=== PATIENT | male | born 1955 | race Caucasian/White ===

== ENCOUNTER 2020-12-03 07:58 | Day surgery (SDC) | payer MEDICARE ==
[2020-12-03] MEDS ORDERED: Bupivacaine 0.25% HCL 30 ML VIAL ONE (10:32)
[2020-12-03] MEDS ORDERED: EPINEPHrine 1 MG/ML AMP ONE ×2 (10:32→10:38)
[2020-12-03] MEDS ORDERED: Isosulfan Blue 50 MG/5 ML VIAL ONE (10:32)
[2020-12-03] MEDS ORDERED: Mineral Oil Sterile 10ML 10 ML UDCUP ONE (10:33)
[2020-12-03] MEDS ORDERED: Fentanyl 100 MCG/2 ML VIAL ONE ×2 (11:31→14:13)
[2020-12-03] MEDS ORDERED: PROPOFOL 200 MG/20 ML VIAL ONE (12:21)
[2020-12-03] MEDS ORDERED: Ondansetron PF 4 MG/2 ML Vial ONE ×2 (12:21→14:13)
[2020-12-03] MEDS ORDERED: Calcium Chloride 1 GM/10 ML Abboject SYRINGE ONE (12:21)
[2020-12-03] MEDS ORDERED: Dexamethasone 20 MG/5 ML VIAL ONE (12:21)
[2020-12-03] MEDS ORDERED: Lidocaine 1% PF 5 ML VIAL ONE (12:21)
[2020-12-03] MEDS ORDERED: PHENYLEPHRINE-NS 100 MCG/ML 10 ML SYRINGE ONE (12:21)
[2020-12-03] MEDS ORDERED: HYDROcodone/Acetaminophen 5/325 mg Tablet ONE (15:01)
[2020-12-03] MEDS ORDERED: Morphine 2 MG/ML VIAL ONE (15:34)
== END 2020-12-03 16:10 | disposition home or self-care (01) ==
LOC: SDC 07:58
PROVIDERS: ATTEND Plastic Surgery
PROC: 0JQD0ZZ Repair Right Upper Arm Subcutaneous Tissue and Fascia, Open Approach (ICD-10-PCS; principal; 2020-12-03)
PROC: 0HBBXZZ Excision of Right Upper Arm Skin, External Approach (ICD-10-PCS; 2020-12-03)
PROC: 07B50ZX Excision of Right Axillary Lymphatic, Open Approach, Diagnostic (ICD-10-PCS; 2020-12-03)
DX: C43.61 Malignant melanoma of right upper limb, including shoulder (principal); Z79.82 Long term (current) use of aspirin; Z79.899 Other long term (current) drug therapy; Z88.1 Allergy status to other antibiotic agents; Z88.8 Allergy status to other drugs, medicaments and biological substances
CPT/HCPCS: 11606; 12034; 38525; 38900; 78195; 88305; 88307; 88342; 93005; A9541; J2270; Q9968; 93010; J0171; J0690; J1100; J2405; J2704; J3010; S0020

== ENCOUNTER 2020-12-05 12:34 | Inpatient (IN) | payer MEDICARE ==
[~2020-12-05 12:34] MED LIST: Iopamidol-370 76% 500 ML 1 ML ONE
[2020-12-05] MEDS ORDERED: Fentanyl 100 MCG/2 ML VIAL ONE (12:38)
[2020-12-05] MEDS ORDERED: Acetaminophen 325 MG Suppository ONE (12:43)
[2020-12-05] MEDS ORDERED: Acetaminophen 650 MG Suppository ONE (12:43)
[2020-12-05] MEDS ORDERED: Cefepime 2 GM VIAL ONE (12:43)
[2020-12-05] MEDS ORDERED: Vancomycin 1 GM/200 ML BAG ONE (12:43)
[2020-12-05] MEDS ORDERED: Fentanyl BOLUS 250 ML IVPB PRN (13:00)
[2020-12-05] MEDS ORDERED: Fentanyl CADD 100 ML IV SCH (13:00)
[2020-12-05 13:09] LABS: Actual Bicarbonate (HCO3a) 22.8 mEq/L (22-28); Analyzer IN Cardio ER; Base Excess (BEa) -2.5 mEq/L (-2.0 to +3.0); CO2 Tension 41.8 mmHg (35.0-45.0); Calcium, Ionized (arterial) 1.09 mmol/L (1.12-1.30); Carboxyhemoglobin (COHb) 0.8 gm% (0.0-3.0); O2 Tension (PaO2), arterial 67.1 mmHg (> 80.0); Potassium - ABG Lab 5.24 mmol/L (3.70-5.30); pH, Arterial 7.35 (7.35-7.45)
[2020-12-05] MEDS ORDERED: Fentanyl 100 MCG/2 ML VIAL SLOW IVP SCH (13:15)
[2020-12-05 13:16] LABS: Hemoglobin 5.1 g/dL (14.0-18.0); Mean Corpuscular HGB CONC 27.2 g/dL (32.0-36.0); Mean Corpuscular Volume 69.7 fL (78.0-98.0); Mean Platelet Volume 8.2 fL (7.4-10.4); Platelet Count 1722 thou/uL (130-400); RBC Distribution Width 24.8 % (11.5-14.5); Red Blood Cell (RBC) Count 2.67 mill/uL (4.70-6.10); White Blood Cell (WBC) Count 30.3 thou/uL (4.8-10.8)
[2020-12-05 13:17] LABS: Puncture Site RRA
[2020-12-05 13:19] LABS: Bilirubin Negative (Negative); Blood, Urine Negative (Negative); Clarity Clear (Clear); Glucose, Urine (Dipstick) Normal (Negative); Ketone, Urine Negative (Negative); Leukocyte Negative Leu/uL (Negative); Nitrite Negative (Negative); Protein, Urine (Dipstick) Negative (Neg-Trace); Specific Gravity, Urine 1.021 (1.002-1.036); Urobilinogen Normal mg/dL (Less than 2)
[2020-12-05 13:22] LABS: ALT (SGPT) 14 U/L (8-55); AST (SGOT) 19 U/L (5-34); Albumin 3.5 g/dL (3.4-4.8); Alkaline Phosphatase 42 U/L (40-110); Anion Gap 17 mmol/L (10-20); BUN (Urea Nitrogen) 33 mg/dL (8.4-25.7); Bilirubin, Total 0.4 mg/dL (0.2-1.2); Calc. Creatinine Clearance 0 mL/min (70-130); Calcium 8.4 mg/dL (7.8-10.44); Carbon Dioxide 21 mmol/L (23-31); Chloride 106 mmol/L (98-107); Globulin 2.8 g/dL (2.4-3.5); Glucose 119 mg/dL (80-115); Potassium 5.8 mmol/L (3.5-5.1); Protein, Total 6.3 g/dL (5.8-8.1); Sodium 138 mmol/L (136-145)
[2020-12-05 13:31] LABS: INR-International Normal Ratio 1.3; PTT 32.5 sec (22.9-36.1); Prothrombin Time 15.9 sec (12.0-14.7)
[2020-12-05 13:37] LABS: Anisocytosis MODERATE=16-30 cells (100X) (0-5/hpf); Band 8 % (5-11); Elliptocytes SLIGHT = 2-5 cells (100X) (0-1/hpf); Eosinophils 5 % (0-10); Giant Platelets SLIGHT; Hypochromia MODERATE=16-30 cells (100X) (0-5/hpf); Large Platelets MODERATE; Lymphocytes 4 % (21-51); MDiff Complete? YES; Microcytosis MODERATE=15-30 cells (100X) (0-5/hpf); Monocytes 5 % (0-10); Neutrophil 77 % (42-75); Platelet Morphology Comment Appears Increased; Polychromasia MODERATE = 3-4 cells (100X) (0-2/hpf); Reactive Lymphocytes 1 % (0-10); Reflex for Review?? YES; Schistocytes SLIGHT = 2-5 cells (100X) (0-1/hpf); Target Cells SLIGHT = 2-5 cells (100X) (0-1/hpf); Tear Drops SLIGHT = 2-5 cells (100X) (0-1/hpf)
[2020-12-05 13:45] LABS: SARS-CoV-2 NAA Rapid Test Not Detected (NotDetected)
[2020-12-05 13:46] LABS: CKMB 6.3 ng/mL (0-6.6)
[2020-12-05 13:53] LABS: Fibrinogen 374 mg/dL (253-463)
[2020-12-05 13:54] LABS: INR-International Normal Ratio 1.3; PTT 34.5 sec (22.9-36.1); Prothrombin Time 16.2 sec (12.0-14.7)
[2020-12-05 13:55] LABS: D-Dimer Test 0.59 *mcg/mL (0.27-0.43)
[2020-12-05 14:13] LABS: FSP-Qualitative Normal (Normal); FSP-Semiquantitative LESS THAN 5 mcg/mL (Less than 5)
[2020-12-05 14:14] LABS: Platelet Count 1722 thou/uL (130-400)
[2020-12-05] MEDS ORDERED: Bisacodyl 10 MG SUPP PR PRN (14:15)
[2020-12-05] MEDS ORDERED: Ventilator Sedation Protocol 1 EACH FS SCH (14:15)
[2020-12-05] MEDS ORDERED: Acetaminophen 325 MG/10.15 ML UDCUP PO PRN (14:15)
[2020-12-05] MEDS ORDERED: Ondansetron PF 4 MG/2 ML Vial IVP PRN (14:15)
[2020-12-05] MEDS ORDERED: Acetaminophen 325 MG Suppository PR PRN (14:15)
[2020-12-05] MEDS ORDERED: Electrolyte Replacement Protocol 1 EACH IVPB SCH (14:15)
[2020-12-05] MEDS ORDERED: Meropenem 1 GM in Sodium Chloride 0.9% 100 ML IVPB SCH (14:15)
[2020-12-05] MEDS ORDERED: Sodium Bicarbonate 150 MEQ in Dextrose 5% in Water 1,000 ML IV SCH ×2 (14:15→15:22)
[2020-12-05] MEDS ORDERED: Norepinephrine 8 MG/0.9% NS 250 ML IVPB PRN (14:15)
[2020-12-05] MEDS ORDERED: Insulin Regular 300 UNITS/3 ML VIAL SC PRN ×2 (14:28)
[2020-12-05 14:57] LABS: Iron Binding Capacity, Total 333 mcg/dL (261-462); Magnesium 1.8 mg/dL (1.6-2.6); Phosphorus 4.6 mg/dL (2.3-4.7)
[2020-12-05 14:58] LABS: Iron Less than 8 ug/dL (65-175)
[2020-12-05] MEDS ORDERED: Morphine 2 MG/ML VIAL SLOW IVP PRN (15:15)
[2020-12-05] MEDS ORDERED: Propofol 1,000 MG/100 ML VIAL IV PRN (15:15)
[2020-12-05] MEDS ORDERED: fentaNYL Citrate/PF 2,000 MCG in Sodium Chloride 0.9% 60 ML IV SCH (15:15)
[2020-12-05] MEDS ORDERED: Propofol BOLUS 1,000 MG/100 ML VIAL IV PRN (15:15)
[2020-12-05] MEDS ORDERED: Aspirin 81 mg Enteric Coated Tablet PER TUBE SCH (15:30)
[2020-12-05] MEDS ORDERED: Norepinephrine 8 MG/0.9% NS 250 ML ONE (15:41)
[2020-12-05 15:51] LABS: Lactic Acid 1.2 mmol/L (0.5-2.2)
[2020-12-05 17:23] LABS: Reticulocyte Count 2.6 % (0.5-1.5)
[2020-12-05] MEDS ORDERED: MEROPENEM 1 GM/50 ML 1 GM in Premix Bag 1 BAG IVPB SCH (18:00)
[2020-12-05] MEDS ORDERED: Acetaminophen 650 MG Suppository PR PRN (18:35)
[2020-12-05] MEDS ORDERED: Calcium Carbonate 500 MG ChewTAB PO PRN (18:35)
[2020-12-05] MEDS ORDERED: Acetaminophen 325 MG TAB PO PRN (18:35)
[2020-12-05] MEDS ORDERED: Senokot S 8.6-50 MG TAB PO PRN (18:35)
[2020-12-05 18:39] LABS: Anion Gap 16 mmol/L (10-20); BUN (Urea Nitrogen) 34 mg/dL (8.4-25.7); Calc. Creatinine Clearance 0 mL/min (70-130); Calcium 7.9 mg/dL (7.8-10.44); Carbon Dioxide 19 mmol/L (23-31); Chloride 107 mmol/L (98-107); Glucose 164 mg/dL (80-115); Potassium 5.3 mmol/L (3.5-5.1); Sodium 137 mmol/L (136-145)
[2020-12-05] MEDS: Sodium Bicarbonate 150 MEQ in Dextrose 5% in Water 1,000 ML IV SCH (19:34)
[2020-12-05] MEDS: Hydroxyurea 500 MG CAP PO SCH (21:06)
[2020-12-05] MEDS: Iron, Sodium Ferric Gluconate 250 MG in Sodium Chloride 0.9% 250 ML 250 ML IVPB SCH (21:06)
[2020-12-05] MEDS: Lorazepam 2 MG/ML VIAL SLOW IVP PRN (21:54)
[2020-12-06] MEDS ORDERED: Fentanyl CADD 100 ML ONE ×2 (01:13→13:42)
[2020-12-06] MEDS: Fentanyl CADD 100 ML IV SCH ×2 (01:19→13:46)
[2020-12-06] MEDS: MEROPENEM 1 GM/50 ML 1 GM in Premix Bag 1 BAG IVPB SCH ×2 (01:44→13:38)
[2020-12-06] MEDS: Sodium Bicarbonate 150 MEQ in Dextrose 5% in Water 1,000 ML IV SCH (03:58)
[2020-12-06 04:40] LABS: ALT (SGPT) 17 U/L (8-55); AST (SGOT) 38 U/L (5-34); Albumin 3.1 g/dL (3.4-4.8); Alkaline Phosphatase 39 U/L (40-110); Anion Gap 13 mmol/L (10-20); BUN (Urea Nitrogen) 30 mg/dL (8.4-25.7); Bilirubin, Total 0.4 mg/dL (0.2-1.2); Calc. Creatinine Clearance 55 mL/min (70-130); Calcium 7.9 mg/dL (7.8-10.44); Carbon Dioxide 24 mmol/L (23-31); Chloride 104 mmol/L (98-107); Globulin 2.6 g/dL (2.4-3.5); Glucose 134 mg/dL (80-115); Potassium 4.3 mmol/L (3.5-5.1); Protein, Total 5.7 g/dL (5.8-8.1); Sodium 137 mmol/L (136-145)
[2020-12-06 05:13] LABS: Anisocytosis MODERATE=16-30 cells (100X) (0-5/hpf); Band 12 % (5-11); Elliptocytes SLIGHT = 2-5 cells (100X) (0-1/hpf); Hemoglobin 6.8 g/dL (14.0-18.0); Hypochromia SLIGHT = 6-15 cells (100X) (0-5/hpf); Large Platelets SLIGHT; Lymphocytes 1 % (21-51); MDiff Complete? YES; Mean Corpuscular HGB CONC 29.9 g/dL (32.0-36.0); Mean Corpuscular Hemoglobin 21.7 pg (27.0-31.0); Mean Corpuscular Volume 72.8 fL (78.0-98.0); Mean Platelet Volume 8.1 fL (7.4-10.4); Microcytosis SLIGHT = 6-15 cells (100X) (0-5/hpf); Monocytes 1 % (0-10); Neutrophil 85 % (42-75); Nucleated RBC 3 % (0); Platelet Count 1065 thou/uL (130-400); Platelet Morphology Comment Appears Increased; RBC Distribution Width 23.5 % (11.5-14.5); Red Blood Cell (RBC) Count 3.12 mill/uL (4.70-6.10); Tear Drops SLIGHT = 2-5 cells (100X) (0-1/hpf); White Blood Cell (WBC) Count 37.7 thou/uL (4.8-10.8)
[2020-12-06 05:21] LABS: CKMB 18.8 ng/mL (0-6.6)
[2020-12-06 07:07] LABS: Actual Bicarbonate (HCO3a) 25.9 mEq/L (22-28); Base Excess (BEa) 1.6 mEq/L (-2.0 to +3.0); CO2 Tension 39.4 mmHg (35.0-45.0); Calcium, Ionized (arterial) 1.03 mmol/L (1.12-1.30); Carboxyhemoglobin (COHb) 1.4 gm% (0.0-3.0); O2 Tension (PaO2), arterial 64.8 mmHg (> 80.0); Potassium - ABG Lab 4.07 mmol/L (3.70-5.30); pH, Arterial 7.44 (7.35-7.45)
[2020-12-06 07:37] LABS: Puncture Site RBA
[2020-12-06] MEDS ORDERED: hydrALAZINE 20 MG/ML VIAL SLOW IVP PRN (07:44)
[2020-12-06] MEDS ORDERED: Loperamide HCl 2 MG CAP PO PRN (07:44)
[2020-12-06] MEDS ORDERED: GUAIFENESIN SF SOLN 200 MG/10 ML UDCUP PO PRN (07:44)
[2020-12-06] MEDS ORDERED: Magnesium 2 GM/50 ML 2 GM in Premix Bag 1 BAG IVPB SCH (08:00)
[2020-12-06] MEDS ORDERED: Aspirin 81 mg Enteric Coated Tablet PER TUBE SCH (09:00)
[2020-12-06] MEDS ORDERED: Famotidine/PF 20 mg/2ml Vial SLOW IVP SCH (09:00)
[2020-12-06] MEDS: Cyanocobalamin (Vitamin B-12) 1,000 MCG TAB PER TUBE SCH (09:22)
[2020-12-06] MEDS: Pantoprazole 40 MG VIAL IVP SCH (09:22)
[2020-12-06] MEDS: Aspirin Chewable 81 MG TAB PER TUBE SCH (09:22)
[2020-12-06] MEDS: Folic Acid 1 MG TAB PER TUBE SCH (09:22)
[2020-12-06] MEDS: Hydroxyurea 500 MG CAP PO SCH ×2 (09:23→20:04)
[2020-12-06] MEDS: Dextrose 5 % And 0.9 % NaCl 1,000 ML IV SCH (09:30)
[2020-12-06] MEDS ORDERED: Vancomycin 1 GM in Premix Bag 1 BAG IVPB SCH (13:00)
[2020-12-06] MEDS ORDERED: Amiodarone 150 MG, Admixture Fee 1 EACH in Dextrose 5% in Water 100 ML IVPB SCH (15:00)
[2020-12-06] MEDS: Amiodarone 450 MG, Admixture Fee 1 EACH in Dextrose 5% in Water 250 ML IVPB SCH (15:44)
[2020-12-06] MEDS ORDERED: Iron, Sodium Ferric Gluconate 250 MG in Sodium Chloride 0.9% 250 ML 250 ML IVPB SCH (16:00)
[2020-12-06] MEDS: Iron, Sodium Ferric Gluconate 250 MG in Sodium Chloride 0.9% 250 ML 250 ML IVPB SCH (16:25)
[2020-12-06] MEDS: Lorazepam 2 MG/ML VIAL SLOW IVP PRN (21:37)
[2020-12-07] MEDS: MEROPENEM 1 GM/50 ML 1 GM in Premix Bag 1 BAG IVPB SCH ×2 (01:08→14:15)
[2020-12-07] MEDS: Amiodarone 450 MG, Admixture Fee 1 EACH in Dextrose 5% in Water 250 ML IVPB SCH ×2 (01:08→17:20)
[2020-12-07] MEDS: Dextrose 5 % And 0.9 % NaCl 1,000 ML IV SCH (01:08)
[2020-12-07] MEDS ORDERED: Fentanyl CADD 100 ML ONE ×2 (02:08→14:09)
[2020-12-07] MEDS: Fentanyl CADD 100 ML IV SCH ×2 (02:10→14:14)
[2020-12-07 04:14] LABS: ALT (SGPT) 17 U/L (8-55); AST (SGOT) 33 U/L (5-34); Alkaline Phosphatase 43 U/L (40-110); Anion Gap 11 mmol/L (10-20); BUN (Urea Nitrogen) 18 mg/dL (8.4-25.7); Bilirubin, Total 0.5 mg/dL (0.2-1.2); Calc. Creatinine Clearance 79 mL/min (70-130); Calcium 7.8 mg/dL (7.8-10.44); Carbon Dioxide 26 mmol/L (23-31); Chloride 104 mmol/L (98-107); Globulin 2.6 g/dL (2.4-3.5); Glucose 156 mg/dL (80-115); Protein, Total 5.6 g/dL (5.8-8.1); Sodium 137 mmol/L (136-145)
[2020-12-07 04:23] LABS: Anisocytosis MODERATE=16-30 cells (100X) (0-5/hpf); Band 16 % (5-11); Eosinophils 2 % (0-10); Hemoglobin 7.7 g/dL (14.0-18.0); Lymphocytes 3 % (21-51); MDiff Complete? YES; Mean Corpuscular HGB CONC 31.8 g/dL (32.0-36.0); Mean Corpuscular Hemoglobin 24.1 pg (27.0-31.0); Mean Corpuscular Volume 75.6 fL (78.0-98.0); Mean Platelet Volume 8.4 fL (7.4-10.4); Monocytes 4 % (0-10); Neutrophil 75 % (42-75); Platelet Count 857 thou/uL (130-400); Platelet Morphology Comment Appears Increased; RBC Distribution Width 23.5 % (11.5-14.5); Red Blood Cell (RBC) Count 3.19 mill/uL (4.70-6.10); White Blood Cell (WBC) Count 30.9 thou/uL (4.8-10.8)
[2020-12-07 06:54] LABS: Actual Bicarbonate (HCO3a) 26.5 mEq/L (22-28); Base Excess (BEa) 1.7 mEq/L (-2.0 to +3.0); CO2 Tension 42.5 mmHg (35.0-45.0); Calcium, Ionized (arterial) 1.07 mmol/L (1.12-1.30); Carboxyhemoglobin (COHb) 0.8 gm% (0.0-3.0); Hemoglobin (Hb) 8.3 g/dL (14.0-18.0); O2 Tension (PaO2), arterial 91.5 mmHg (> 80.0); Potassium - ABG Lab 4.19 mmol/L (3.70-5.30); pH, Arterial 7.41 (7.35-7.45)
[2020-12-07 06:55] LABS: ALV-art Gradient 140.575 mmHg (0-20); Puncture Site RBA
[2020-12-07] MEDS ORDERED: Furosemide 40 MG/4 ML VIAL SLOW IVP SCH (07:45)
[2020-12-07] MEDS: Hydroxyurea 500 MG CAP PO SCH ×2 (08:11→21:55)
[2020-12-07] MEDS: Aspirin Chewable 81 MG TAB PER TUBE SCH (08:17)
[2020-12-07] MEDS: Folic Acid 1 MG TAB PER TUBE SCH (08:18)
[2020-12-07] MEDS: Pantoprazole 40 MG VIAL IVP SCH (08:20)
[2020-12-07] MEDS: Cyanocobalamin (Vitamin B-12) 1,000 MCG TAB PER TUBE SCH (08:27)
[2020-12-07] MEDS: Lorazepam 2 MG/ML VIAL SLOW IVP PRN (14:14)
[2020-12-08] MEDS: MEROPENEM 1 GM/50 ML 1 GM in Premix Bag 1 BAG IVPB SCH ×2 (01:49→14:14)
[2020-12-08] MEDS ORDERED: Fentanyl CADD 100 ML ONE (03:16)
[2020-12-08] MEDS: Fentanyl CADD 100 ML IV SCH (03:24)
[2020-12-08 05:00] LABS: Hemoglobin 7.6 g/dL (14.0-18.0); Mean Corpuscular HGB CONC 29.7 g/dL (32.0-36.0); Mean Corpuscular Hemoglobin 23.1 pg (27.0-31.0); Mean Corpuscular Volume 77.8 fL (78.0-98.0); Mean Platelet Volume 8.5 fL (7.4-10.4); Platelet Count 967 thou/uL (130-400); RBC Distribution Width 24.5 % (11.5-14.5); Red Blood Cell (RBC) Count 3.26 mill/uL (4.70-6.10); White Blood Cell (WBC) Count 22.2 thou/uL (4.8-10.8)
[2020-12-08 05:02] LABS: ALT (SGPT) 15 U/L (8-55); AST (SGOT) 25 U/L (5-34); Albumin 3.1 g/dL (3.4-4.8); Alkaline Phosphatase 44 U/L (40-110); Anion Gap 13 mmol/L (10-20); BUN (Urea Nitrogen) 16 mg/dL (8.4-25.7); Bilirubin, Total 0.8 mg/dL (0.2-1.2); Calc. Creatinine Clearance 87 mL/min (70-130); Calcium 8.1 mg/dL (7.8-10.44); Carbon Dioxide 25 mmol/L (23-31); Chloride 103 mmol/L (98-107); Globulin 2.8 g/dL (2.4-3.5); Glucose 97 mg/dL (80-115); Magnesium 2.2 mg/dL (1.6-2.6); Potassium 3.8 mmol/L (3.5-5.1); Protein, Total 5.9 g/dL (5.8-8.1); Sodium 137 mmol/L (136-145)
[2020-12-08 05:35] LABS: Anisocytosis MODERATE=16-30 cells (100X) (0-5/hpf); Band 4 % (5-11); Eosinophils 4 % (0-10); Large Platelets MODERATE; Lymphocytes 4 % (21-51); MDiff Complete? YES; Monocytes 3 % (0-10); Neutrophil 83 % (42-75); Platelet Morphology Comment Appears Increased
[2020-12-08 07:19] LABS: Actual Bicarbonate (HCO3a) 25.2 mEq/L (22-28); Base Excess (BEa) 0.7 mEq/L (-2.0 to +3.0); CO2 Tension 39.8 mmHg (35.0-45.0); Calcium, Ionized (arterial) 1.11 mmol/L (1.12-1.30); Carboxyhemoglobin (COHb) 1.2 gm% (0.0-3.0); Hemoglobin (Hb) 7.4 g/dL (14.0-18.0); O2 Tension (PaO2), arterial 111.5 mmHg (> 80.0); Potassium - ABG Lab 3.82 mmol/L (3.70-5.30); pH, Arterial 7.42 (7.35-7.45)
[2020-12-08 07:49] LABS: Puncture Site RRA
[2020-12-08] MEDS ORDERED: Furosemide 40 MG/4 ML VIAL SLOW IVP SCH (08:00)
[2020-12-08 08:03] VITALS: TEMP 99.1
[2020-12-08] MEDS: Hydroxyurea 500 MG CAP PO SCH (08:07)
[2020-12-08] MEDS: Folic Acid 1 MG TAB PER TUBE SCH (08:07)
[2020-12-08] MEDS: Aspirin Chewable 81 MG TAB PER TUBE SCH (08:07)
[2020-12-08] MEDS: Pantoprazole 40 MG VIAL IVP SCH (08:08)
[2020-12-08] MEDS: Cyanocobalamin (Vitamin B-12) 1,000 MCG TAB PER TUBE SCH (08:11)
[2020-12-08 08:58] VITALS: BMI 23.4
[2020-12-08] MEDS: Amiodarone 450 MG, Admixture Fee 1 EACH in Dextrose 5% in Water 250 ML IVPB SCH (09:02)
[2020-12-08 10:13] VITALS: BP 125/76
== END 2020-12-08 15:47 | disposition hospice, home (50) | DRG 871 ==
LOC: ERS 12:34 → CCU 14:23
PROVIDERS: ADMIT Internal Medicine; ATTEND Internal Medicine
PROC: 06HY33Z Insertion of Infusion Device into Lower Vein, Percutaneous Approach (ICD-10-PCS; principal; 2020-12-05)
PROC: 0D9770Z Drainage of Stomach, Pylorus with Drainage Device, Via Natural or Artificial Opening (ICD-10-PCS; 2020-12-05)
PROC: 5A1945Z Respiratory Ventilation, 24-96 Consecutive Hours (ICD-10-PCS; 2020-12-05)
PROC: 3E033XZ Introduction of Vasopressor into Peripheral Vein, Percutaneous Approach (ICD-10-PCS; 2020-12-05)
DX: A41.9 Sepsis, unspecified organism (principal); J96.01 Acute respiratory failure with hypoxia; G92 Toxic encephalopathy; R65.21 Severe sepsis with septic shock; J69.0 Pneumonitis due to inhalation of food and vomit; I21.A1 Myocardial infarction type 2; N17.9 Acute kidney failure, unspecified; G93.1 Anoxic brain damage, not elsewhere classified; E44.0 Moderate protein-calorie malnutrition; J81.1 Chronic pulmonary edema; C94.6 Myelodysplastic disease, not elsewhere classified; Z66 Do not resuscitate; I48.91 Unspecified atrial fibrillation; D50.9 Iron deficiency anemia, unspecified; E83.42 Hypomagnesemia; R13.10 Dysphagia, unspecified; E87.5 Hyperkalemia; D47.3 Essential (hemorrhagic) thrombocythemia; Z96.642 Presence of left artificial hip joint; Z88.1 Allergy status to other antibiotic agents; Z88.8 Allergy status to other drugs, medicaments and biological substances; Z78.1 Physical restraint status; Z88.5 Allergy status to narcotic agent; I69.391 Dysphagia following cerebral infarction; Z87.891 Personal history of nicotine dependence; Z98.890 Other specified postprocedural states; Z79.82 Long term (current) use of aspirin; Z79.899 Other long term (current) drug therapy; Z68.23 Body mass index [BMI] 23.0-23.9, adult; Z85.820 Personal history of malignant melanoma of skin; Z20.822 Contact with and (suspected) exposure to COVID-19
CPT/HCPCS: 0240U; 36415; 36416; 36430; 36600; 70450; 71045; 71275; 80053; 81003; 82533; 82553; 82607; 82728; 82746; 82805; 83540; 83550; 83605; 83735; 84100; 84145; 84484; 85007; 85025; 85027; 85046; 85049; 85060; 85300; 85362; 85379; 85384; 85610; 85730; 86140; 86850; 86900; 86901; 87040; 87070; 87086; 87205; 93005; 93306; 94002; 94003; 94640; 94760; C9113; J0282; J0692; J1815; J1940; J1956; J2060; J2185; J2916; J3010; J3370; J3475; J3490; J7050; J7070; J7620; P9016; Q9967